=== PATIENT | female | born 2000 | race Caucasian/White ===

== ENCOUNTER 2019-05-02 11:07 | Observation (INO) | payer BC ==
[~2019-05-02] VITALS: Ht 162.6 cm; Wt 57.6 kg
[2019-05-02] MEDS ORDERED: DIPHTH/TETANUS/ACEL. PERTUSSIS IM ONE (11:20)
[2019-05-02] MEDS ORDERED: EMS NS 0.9%(*) 1000 ML BAG 1,000 ML IV ONE (11:20)
--- NOTE | 2019-05-02 11:48 | ER Report ---
History and Physical Time Seen By MD: 11:25 HPI/ROS CHIEF COMPLAINT: Fainting episode HISTORY OF PRESENT ILLNESS: This is a 18-year-old female who presents to the emergency department via EMS for a syncopal episode. Patient just arrived from [place] last night, here visiting her brother, she got out of the car to me his girlfriend when she suddenly had a syncopal episode, hitting the left side of her face and head on the ground. He does sound as though she had a positive loss of consciousness. She has had vertigo before. Patient states that she did feel wobbly like her previous vertigo episodes. She is otherwise healthy. She denies nausea at this time. No vomiting. No chest pain or shortness of breath. She is very anxious and tearful. GCS 15. No seizure activity. Her face is covered with dried blood. REVIEW OF SYSTEMS: Constitutional: No fever, no chills. Eyes: No discharge. ENT: No sore throat. Cardiovascular: No chest pain, no palpitations. Respiratory: No cough, no shortness of breath. Gastrointestinal: No abdominal pain, no vomiting. Genitourinary: No hematuria. Musculoskeletal: No back pain. Skin: As above. Neurological: As above. Allergies: Coded Allergies: No Known Drug Allergies (Unverified , 05/02/19) Home Meds Reported Medications [ Control] No Conflict Check 05/02/19 Past Medical/Surgical History The patient has a past medical and surgical history of colitis, depression, uses marijuana on a daily basis. Vertigo. Reviewed Nurses Notes: Yes Constitutional Vital Sign - Last 24 Hours 05/02/19 05/02/19 05/02/19 05/02/19 11:11 11:30 12:00 12:02 Temp 98.2 Pulse 88 85 82 Resp 22 10 43 B/P (MAP) 128/73 118/48 (71) Pulse Ox 99 97 99 05/02/19 05/02/19 05/02/19 05/02/19 12:30 12:35 13:05 13:35 Pulse 92 86 96 Resp 39 31 17 25 B/P (MAP) 134/93 (107) Pulse Ox 77 05/02/19 05/02/19 05/02/19 05/02/19 13:44 13:49 14:00 14:19 Pulse 97 ??? Resp 24 19 B/P (MAP) 136/64 (88) 127/64 (85) Pulse Ox 96 87 05/02/19 05/02/19 05/02/19 05/02/19 14:30 14:49 15:00 15: Pulse 91 84 Resp 25 24 B/P (MAP) 130/71 (90) 104/61 (75) 05/02/19 15:24 Pulse 93 Resp 41 Physical Exam General Appearance: The patient is alert, has no immediate need for airway protection and no signs of toxicity, very anxious, crying. Eyes: Pupils equal and round no pallor or injection. EOMs intact. No nystagmus. ENT, Mouth: Mucous membranes are moist. Respiratory: There are no retractions, lungs are clear to auscultation. Cardiovascular: Regular rate and rhythm. No murmurs, clicks or rubs. Gastrointestinal: Abdomen is soft and non tender, no masses, bowel sounds normal. Neurological: Alert and oriented 4. Moving all extremities. Following all commands. No focal neuro deficits. Skin: Laceration approximately 2 cm in totality, to the left forehead, abrasion to the left cheek, abrasion to the left clavicle. Bleeding is controlled. Musculoskeletal: Neck is supple non tender. Extremities are nontender, nonswollen and have full range of motion. DIFFERENTIAL DIAGNOSIS: After history and physical exam differential diagnosis was considered for syncope including but not limited to vasovagal syncope, arrhythmia, dehydration, and blood loss. Medical Decision Making Data Points Result Diagram: 05/02/19 1124 05/02/19 1124 Laboratory Hematology Test 05/02/19 11:24 White Blood Count 8.8 k/uL (4.5-11.0) Red Blood Count 4.33 M/uL (4.17-5.56) Hemoglobin 12.7 g/dL (12.0-16.0) Hematocrit 38.0 % (34.0-47.0) Mean Corpuscular Volume 87.8 fL (80.0-96.0) Mean Corpuscular Hemoglobin 29.3 pg (26.0-33.0) Mean Corpuscular Hemoglobin Concent 33.3 g/dL (32.0-36.0) Red Cell Distribution Width 13.9 % (11.5-14.5) Platelet Count 278 K/uL (150-450) Mean Platelet Volume 9.3 fL (7.2-11.1) Neutrophils (%) (Auto) 67.9 % (39.4-72.5) Lymphocytes (%) (Auto) 24.1 % (17.6-49.6) Monocytes (%) (Auto) 7.1 % (4.1-12.4) Eosinophils (%) (Auto) 0.2 % (0.4-6.7) L Basophils (%) (Auto) 0.7 % (0.3-1.4) Nucleated RBC Relative Count (auto) 0.0 /100WBC Neutrophils # (Auto) 6.0 K/uL (2.0-7.4) Lymphocytes # (Auto) 2.1 K/uL (1.3-3.6) Monocytes # (Auto) 0.6 K/uL (0.3-1.0) Eosinophils # (Auto) 0.0 K/uL (0.0-0.5) Basophils # (Auto) 0.1 K/uL (0.0-0.1) Nucleated RBC Absolute Count (auto) 0.00 K/uL Chemistry Test 05/02/19 11:24 05/02/19 15:27 Sodium Level 138 mmol/L (137-145) Potassium Level 3.4 mmol/L (3.5-5.0) Chloride Level 106 mmol/L (98-107) Carbon Dioxide Level 20 mmol/L (22-31) Blood Urea Nitrogen 8 mg/dl (7-18) Creatinine 0.60 mg/dl (0.52-1.04) Glomerular Filtration Rate Calc > 60.0 Random Glucose 130 mg/dl (75-110) Calcium Level 9.0 mg/dl (8.4-10.2) Total Bilirubin 0.6 mg/dl (0.2-1.3) Aspartate Amino Transf (AST/SGOT) 19 U/L (0-35) Alanine Aminotransferase (ALT/SGPT) 27 U/L (0-56) Alkaline Phosphatase 53 U/L (0-126) Total Protein 6.6 g/dl (6.3-8.2) Albumin 4.2 g/dl (3.5-5.0) Lactate 1.1 mmol/L (0.7-2.1) Coagulation Test 05/02/19 11:24 Prothrombin Time 14.1 seconds (12.0-14.4) Prothromb Time International Ratio 1.09 Activated Partial Thromboplast Time 25 seconds (23-35) EKG/Imaging EKG Interpretation 12 lead EKG: Time of EKG 1120. Rhythm: Sinus rhythm, ventricular rate 67 bpm. Lowman: normal QRS: normal ST segments: No ST depression or elevation identified. 12 lead EKG: Repeat EKG at 1217 as the patient was complaining of lightheadedness and dizziness. she was hyperventilating at the time. Rhythm: Sinus rhythm, ventricular rate 76 bpm. Lowman: normal QRS: normal ST segments: No ST depression or elevation identified. No changes from the previous EKG. Imaging PATIENT NAME: Lilly Galan : 2000 MR: [id number] V: [id number] EXAM DATE: [id number] ORDERING PHYSICIAN: NORMA BRUSH TECHNOLOGIST: Location: [facility] - [place] Patient: Lilly Galan : 2000 Visit/Account:[id number] Date of Sevice: 05/02/2019 EXAMINATION: Left clavicle, 2 views 05/02/2019 12:46 PM HISTORY: Fall from standing. Syncope. Left clavicle pain. COMPARISON: None FINDINGS: Visualized bony structures are intact and anatomically aligned without fracture or other acute osseous abnormality evident. IMPRESSION: Negative exam. Report Dictated By: Anastacio Salazar MD at 05/02/2019 1:17 PM Report E-Signed By: Anastacio Salazar MD at 05/02/2019 1:19 PM WSN:[id number] PATIENT NAME: Lilly Galan : 2000 MR: [id number] V: [id number] EXAM DATE: [id number] ORDERING PHYSICIAN: NORMA BRUSH TECHNOLOGIST: Location: [facility] - [place] Patient: Lilly Galan : 2000 Visit/Account:[id number] Date of Sevice: 05/02/2019 EXAMINATION: CT HEAD, MAXILLOFACIAL, AND CERVICAL SPINE WITHOUT CONTRAST COMPARISON: None available HISTORY: Syncope. Fall from standing. Head pain and left jaw pain. PROCEDURE: Noncontrast multiplanar head CT, maxillofacial CT, and cervical spine CT. One of the following dose optimization techniques was utilized in the performan ce of this exam: Automated exposure control; adjustment of the mA and/or kV according to the patient's size; or use of an iterative reconstruction technique. Specific details can be referenced in the facility's radiology CT exam operational policy. FINDINGS: CT head without contrast: Brain volume: Age-appropriate. Hemorrhage/extra-axial fluid: None. Mass effect/midline shift/edema: None. Ischemia: Montalvo-white differentiation is preserved. Ventricles and basal cisterns: Within normal limits. Posterior fossa: Negative. Vessels: Negative. Calvarium, skull base, and scalp: Left frontal scalp laceration. No radiopaque foreign body. No fracture. CT maxillofacial without contrast: Mandible, temporomandibular joints, and teeth: Negative. Orbits and orbital contents: No orbit fracture. Globes and orbital contents are symmetric. Paranasal sinuses and mastoid air cells: Negative. Nasal bones, anterior nasal spine, and nasal septum: Negative. Zygomatic arches and pterygoid plates: Negative. Facial soft tissues: Left facial mild soft tissue swelling. No radiopaque foreign body or hematoma. CT cervical spine without contrast: Alignment: Within normal limits. Cranio-cervical junction: Within normal limits. Vertebral bodies: Negative. Posterior elements: Negative. Disc spaces: Negative. Hardware: None. Soft tissues: Incompletely visualized soft tissue swelling in the region of the left mid/distal clavicle. Visualized upper chest: Negative. IMPRESSION: 1. Left frontal scalp laceration and left facial contusion. 2. No evidence of acute intracranial pathology. 3. No maxillofacial fracture. 4. No cervical spine fracture or malalignment. 5. Incompletely visualized soft tissue contusion along the mid/distal left clavicle. Consider further characterization by radiographs if there is any clinical concern for clavicle/shoulder trauma. Report Dictated By: Gasper Neal MD at 05/02/2019 12:08 PM Report E-Signed By: Gasper Neal MD at 05/02/2019 12:32 PM WSN:[id number] ED Course/Re-evaluation Clinical Indication for ER IV: Hydration, IV Access ED Course The patient was admitted to room. A history and physical obtained. Differential diagnoses were considered. A CT of the head, face and C-spine were negative for any acute pathology. I did review the results with the patient. They did note that there was incomplete exam of the left clavicle they did note there may be some underlying soft tissue damage and concerned about a clavicle fracture recommended an x-ray, I did review this with the patient and her family, an x- ray was obtained which was negative. Patient has had persistent vomiting, she has received 0.5 mg IV Ativan 2, 12.5 mg IV Phenergan 2. The patient's wounds on the left forehead, cheek and left clavicle were cleaned, the laceration to the left forehead was repaired as noted below. As the patient had continuous, very forceful vomiting in spite of pharmacologic interventions, I did recommend an admission to the hospital for observation as well as treatment of her nausea and vomiting. Patient expressed understanding, was agreeable with this plan of care. I did speak with Dr. Jett the general surgeon on-call as noted below, he is accepting the patient in the surgical services, the patient was admitted to the medical floor. 05/02/2019 12:43:39 pm negative C-spine by CT scan, c-collar was removed, patient had no pain with flexion, extension and rotation from right to left. There was a potential concern for a left clavicle injury, not completely evaluated on the CT scan, patient is painful over this area after removing the c-collar, is visualized I am getting a left clavicle x-ray. patient has been very anxious and hyperventilating, I did ask her if she would like some medication to help her relax, she said she would like something. I did give her 0.5 mg IV Ativan as well as 12.5 mg IV Phenergan for her nausea. 05/02/2019 1:43:39 pm Procedure: Laceration repair. Verbal consent was obtained from the patient. The 2 cm star pattern laceration on the left forehead was anesthetized in the usual fashion. The wound was scrubbed, draped and explored to its base with a gloved finger. There were structures involved. No tendon injury was identified. The wound was repaired with one 5-0 Vicryl pursestring suture. One 6-0 Prolene pursestring suture. 4 6- 0 Prolene simple interrupted sutures. The wound repair was complex. The procedure was performed by myself. 05/02/2019 2:01:51 pm did speak [address] Dr[address] Jett, the general surgeon on-call regarding the patient's case, he is accepting the patient and his services, patient will be admitted to the medical floor for syncope, head injury, persistent vomiting. Decision to Disposition Date: May 02, 2019 Decision to Disposition Time: 14:01 Depart Departure Latest Vital Signs Vital Signs Date Time Temp Pulse Resp B/P (MAP) Pulse Ox O2 Delivery O2 Flow Rate FiO2 05/02/19 15:24 93 41 05/02/19 15:00 104/61 (75) 05/02/19 14:19 87 05/02/19 11:11 98.2 Impression: Primary Impression: Syncope Additional Impressions: Head injury Persistent vomiting Condition: Improved Disposition: Admitted from ER Problem Qualifiers Primary Impression: Syncope Syncope type: unspecified Qualified Codes: R55 - Syncope and collapse Additional Impressions: Head injury Encounter type: initial encounter Qualified Codes: S09.90XA - Unspecified injury of head, initial encounter NORMA BRUSH-ETHAN May 02, 2019 11:48
[2019-05-02 11:59] LABS: PLATELET COUNT, AUTOMATED 278 K/uL (150-450)
[2019-05-02] MEDS ORDERED: BIRTH CONTROL (12:00)
[2019-05-02 12:09] LABS: INR 1.09
[2019-05-02] MEDS ORDERED: PROMETHAZINE 25 MG/ML 1 ML AMP IVP ONE ×2 (12:35→13:20)
[2019-05-02] MEDS ORDERED: LORazepam 2 MG/ML VIAL IVP ONE ×2 (12:35→13:45)
--- NOTE | 2019-05-02 12:40 | RADIOLOGY IMAGING REPORT ---
FACILITY: [facility] PATIENT NAME: Lilly Galan : 2000 MR: [id number] V: [id number] EXAM DATE: ORDERING PHYSICIAN: NORMA BRUSH TECHNOLOGIST: [place] [facility] [place] Patient: Lilly Galan : 2000 Visit/Account:[id number] Date of Sevice: 05/02/2019 EXAMINATION: CT HEAD, MAXILLOFACIAL, AND CERVICAL SPINE WITHOUT CONTRAST COMPARISON: None available HISTORY: Syncope. Fall from standing. Head pain and left jaw pain. PROCEDURE: Noncontrast multiplanar head CT, maxillofacial CT, and cervical spine CT. One of the following dose optimization techniques was utilized in the performance of this exam: Autom ated exposure control; adjustment of the mA and/or kV according to the patient's size; or use of an i terative reconstruction technique. Specific details can be referenced in the facility's radiology C T exam operational policy. FINDINGS: CT head without contrast: Brain volume: Age-appropriate. Hemorrhage/extra-axial fluid: None. Mass effect/midline shift/edema: None. Ischemia: Montalvo-white differentiation is preserved. Ventricles and basal cisterns: Within normal limits. Posterior fossa: Negative. Vessels: Negative. Calvarium, skull base, and scalp: Left frontal scalp laceration. No radiopaque foreign body. No fract ure. CT maxillofacial without contrast: Mandible, temporomandibular joints, and teeth: Negative. Orbits and orbital contents: No orbit fracture. Globes and orbital contents are symmetric. Paranasal sinuses and mastoid air cells: Negative. Nasal bones, anterior nasal spine, and nasal septum: Negative. Zygomatic arches and pterygoid plates: Negative. Facial soft tissues: Left facial mild soft tissue swelling. No radiopaque foreign body or hematoma. CT cervical spine without contrast: Alignment: Within normal limits. Cranio-cervical junction: Within normal limits. Vertebral bodies: Negative. Posterior elements: Negative. Disc spaces: Negative. Hardware: None. Soft tissues: Incompletely visualized soft tissue swelling in the region of the left mid/distal clavi yoli. Visualized upper chest: Negative. IMPRESSION: 1. Left frontal scalp laceration and left facial contusion. 2. No evidence of acute intracranial pathology. 3. No maxillofacial fracture. 4. No cervical spine fracture or malalignment. 5. Incompletely visualized soft tissue contusion along the mid/distal left clavicle. Consider further characterization by radiographs if there is any clinical concern for clavicle/shoulder trauma. Report Dictated By: Gasper Neal MD at 05/02/2019 12:08 PM Report E-Signed By: Gasper Neal MD at 05/02/2019 12:32 PM WSN:[id number]
--- NOTE | 2019-05-02 12:40 | RADIOLOGY IMAGING REPORT ---
FACILITY: [facility] [place] PATIENT NAME: Lilly Galan : 2000 MR: [id number] V: [id number] EXAM DATE: ORDERING PHYSICIAN: NORMA BRUSH TECHNOLOGIST: Location: [facility] Patient: Lilly Galan : 2000 Visit/Account:[id number] Date of Sevice: 05/02/2019 EXAMINATION: CT HEAD, MAXILLOFACIAL, AND CERVICAL SPINE WITHOUT CONTRAST COMPARISON: None available HISTORY: Syncope. Fall from standing. Head pain and left jaw pain. PROCEDURE: Noncontrast multiplanar head CT, maxillofacial CT, and cervical spine CT. One of the following dose optimization techniques was utilized in the performance of this exam: Autom ated exposure control; adjustment of the mA and/or kV according to the patient's size; or use of an i terative reconstruction technique. Specific details can be referenced in the facility's radiology C T exam operational policy. FINDINGS: CT head without contrast: Brain volume: Age-appropriate. Hemorrhage/extra-axial fluid: None. Mass effect/midline shift/edema: None. Ischemia: Montalvo-white differentiation is preserved. Ventricles and basal cisterns: Within normal limits. Posterior fossa: Negative. Vessels: Negative. Calvarium, skull base, and scalp: Left frontal scalp laceration. No radiopaque foreign body. No fract ure. CT maxillofacial without contrast: Mandible, temporomandibular joints, and teeth: Negative. Orbits and orbital contents: No orbit fracture. Globes and orbital contents are symmetric. Paranasal sinuses and mastoid air cells: Negative. Nasal bones, anterior nasal spine, and nasal septum: Negative. Zygomatic arches and pterygoid plates: Negative. Facial soft tissues: Left facial mild soft tissue swelling. No radiopaque foreign body or hematoma. CT cervical spine without contrast: Alignment: Within normal limits. Cranio-cervical junction: Within normal limits. Vertebral bodies: Negative. Posterior elements: Negative. Disc spaces: Negative. Hardware: None. Soft tissues: Incompletely visualized soft tissue swelling in the region of the left mid/distal clavi yoli. Visualized upper chest: Negative. IMPRESSION: 1. Left frontal scalp laceration and left facial contusion. 2. No evidence of acute intracranial pathology. 3. No maxillofacial fracture. 4. No cervical spine fracture or malalignment. 5. Incompletely visualized soft tissue contusion along the mid/distal left clavicle. Consider further characterization by radiographs if there is any clinical concern for clavicle/shoulder trauma. Report Dictated By: Gasper Neal MD at 05/02/2019 12:08 PM Report E-Signed By: Gasper Neal MD at 05/02/2019 12:32 PM WSN:[id number]
--- NOTE | 2019-05-02 12:41 | RADIOLOGY IMAGING REPORT ---
[place] [facility] [place] PATIENT NAME: Lilly Galan : 2000 MR: [id number] V: [id number] EXAM DATE: ORDERING PHYSICIAN: NORMA BRUSH TECHNOLOGIST: [place] [facility] [place] Gal[place] : 2000 Visit/Account:[id number] Date of Sevice: 05/02/2019 EXAMINATION: CT HEAD, MAXILLOFACIAL, AND CERVICAL SPINE WITHOUT CONTRAST COMPARISON: None available HISTORY: Syncope. Fall from standing. Head pain and left jaw pain. PROCEDURE: Noncontrast multiplanar head CT, maxillofacial CT, and cervical spine CT. One of the following dose optimization techniques was utilized in the performance of this exam: Autom ated exposure control; adjustment of the mA and/or kV according to the patient's size; or use of an i terative reconstruction technique. Specific details can be referenced in the facility's radiology C T exam operational policy. FINDINGS: CT head without contrast: Brain volume: Age-appropriate. Hemorrhage/extra-axial fluid: None. Mass effect/midline shift/edema: None. Ischemia: Montalvo-white differentiation is preserved. Ventricles and basal cisterns: Within normal limits. Posterior fossa: Negative. Vessels: Negative. Calvarium, skull base, and scalp: Left frontal scalp laceration. No radiopaque foreign body. No fract ure. CT maxillofacial without contrast: Mandible, temporomandibular joints, and teeth: Negative. Orbits and orbital contents: No orbit fracture. Globes and orbital contents are symmetric. Paranasal sinuses and mastoid air cells: Negative. Nasal bones, anterior nasal spine, and nasal septum: Negative. Zygomatic arches and pterygoid plates: Negative. Facial soft tissues: Left facial mild soft tissue swelling. No radiopaque foreign body or hematoma. CT cervical spine without contrast: Alignment: Within normal limits. Cranio-cervical junction: Within normal limits. Vertebral bodies: Negative. Posterior elements: Negative. Disc spaces: Negative. Hardware: None. Soft tissues: Incompletely visualized soft tissue swelling in the region of the left mid/distal clavi yoli. Visualized upper chest: Negative. IMPRESSION: 1. Left frontal scalp laceration and left facial contusion. 2. No evidence of acute intracranial pathology. 3. No maxillofacial fracture. 4. No cervical spine fracture or malalignment. 5. Incompletely visualized soft tissue contusion along the mid/distal left clavicle. Consider further characterization by radiographs if there is any clinical concern for clavicle/shoulder trauma. Report Dictated By: Gasper Neal MD at 05/02/2019 12:08 PM Report E-Signed By: Gasper Neal MD at 05/02/2019 12:32 PM WSN:[id number]
--- NOTE | 2019-05-02 12:47 | EKG ---
FACILITY: [facility] - [place] PATIENT NAME: BRI GORE : [id number] MR: [id number] V: [id number] EXAM DATE: ORDERING PHYSICIAN: NORMA BRUSH TECHNOLOGIST: MARTHA Test Reason : SYNCOPE Blood Pressure : / mmHG Vent. Rate : 067 BPM Atrial Rate : 067 BPM P-R Int : 128 ms QRS Dur : 082 ms QT Int : 404 ms P-R-T Axes : 055 080 045 degrees QTc Int : 426 ms Normal sinus rhythm Normal ECG No previous ECGs available Confirmed by AMOR MENDOSA ([id number]) on 05/02/2019 9:48:42 PM Referred By: NORMA Confirmed By:AMOR MENDOSA
--- NOTE | 2019-05-02 12:48 | EKG ---
FACILITY: [facility] PATIENT NAME: BRI GORE : [id number] MR: [id number] V: [id number] EXAM DATE: ORDERING PHYSICIAN: NORMA BRUSH TECHNOLOGIST: MARTHA Test Reason : SYNCOPE Blood Pressure : / mmHG Vent. Rate : 076 BPM Atrial Rate : 076 BPM P-R Int : 132 ms QRS Dur : 082 ms QT Int : 378 ms P-R-T Axes : 061 081 047 degrees QTc Int : 425 ms Sinus rhythm with marked sinus arrhythmia Otherwise normal ECG When compared with ECG of 02-MAY-2019 11:20, No significant change was found Confirmed by AMOR MENDOSA ([id number]) on 05/02/2019 9:48:04 PM Referred By: NORMA Confirmed By:AMOR MENDOSA
[2019-05-02] MEDS ORDERED: TETRACAIN/EPI/LIDO GEL 3ML SYR TP ONE (13:15)
--- NOTE | 2019-05-02 13:26 | RADIOLOGY IMAGING REPORT ---
FACILITY: [facility] [place] PATIENT NAME: Lilly Galan : 2000 MR: [id number] V: [id number] EXAM DATE: ORDERING PHYSICIAN: NORMA BRUSH TECHNOLOGIST: Location: [facility] - [place], [place] Patient: Lilly Galan : 2000 Visit/Account:[id number] Date of Sevice: 05/02/2019 EXAMINATION: Left clavicle, 2 views 05/02/2019 12:46 PM HISTORY: Fall from standing. Syncope. Left clavicle pain. COMPARISON: None FINDINGS: Visualized bony structures are intact and anatomically aligned without fracture or other a cute osseous abnormality evident. IMPRESSION: Negative exam. Report Dictated By: Anastacio Salazar MD at 05/02/2019 1:17 PM Report E-Signed By: Anastacio Salazar MD at 05/02/2019 1:19 PM WSN:[id number]
[2019-05-02] MEDS ORDERED: PROMETHAZINE 25 MG/ML 1 ML AMP IVP PRN (14:10)
[2019-05-02] MEDS ORDERED: ONDANSETRON 4 MG/2 ML VIAL IVP PRN (14:10)
[2019-05-02] MEDS ORDERED: MORPHINE 2 MG/ML SYR IVP PRN (14:10)
[2019-05-02 16:22] VITALS: BP 122/65
--- NOTE | 2019-05-02 17:07 | Gen Surgery History & Physical ---
History of Present Illness Chief Complaint fall History of Present Illness 18 yo f from [place] stepped out of car to meet a friend. she shook his hand, stepped back, got dizzy, then passed out and fell to the ground. she has never gotten dizzy like that in the past. +vomit but not since arriving to the floor. she is hungry. History Home Meds Reported Medications [ Control] No Conflict Check 05/02/19 Allergies: Coded Allergies: No Known Drug Allergies (Unverified , 05/02/19) Patient History: FH: asthma BROTHER OR SISTER Vertigo FATHER Review of Systems Constitutional: Other (per hpi) Exam General Appearance: Alert, Awake, No Acute Distress Neuro: No Gross deficits Eyes: Other (per, eomi) ENT: Moist Mucous Membranes Neck: Other (no cspine ttp) Cardiovascular: Other (reg rate) Respiratory: No Respiratory Distress GI: Abd Soft and Non-Tender Extremities: Other (no pitting edema) Integumentary: Other (abrasions on left face) Psych: Alert & Oriented X3, Appropriate Mood & Affect Medical Decision Making Data Points Result Diagram: 05/02/19 1124 05/02/19 1124 Assessment and Plan Problems: (1) Syncope Status: Acute Assessment & Plan: 05/02/19: syncope and fall. facial abrasions. likely concussion. vomiting improved. ivf, adat, pain and n/v control, likely home tomorrow. Venous Thromboembolism Antithrombotics Is Pt On Any Antithrombotics?: No Problem Qualifiers (1) Syncope: Syncope type: unspecified Qualified Codes: R55 - Syncope and collapse LUCILA YU May 02, 2019 17:07
[2019-05-02] MEDS: NS(*) 0.9% 1000 ML BAG 1,000 ML IV PRN (18:32)
[2019-05-02 19:26] VITALS: BP 122/69
[2019-05-02 23:05] VITALS: BP 122/69
[2019-05-03] MEDS: NS(*) 0.9% 1000 ML BAG 1,000 ML IV PRN ×2 (04:14→05:10)
[2019-05-03 07:10] VITALS: BP 110/71
--- NOTE | 2019-05-03 07:33 | General Surgery Progress Note ---
Subjective Progress Notes Subjective did well overnight. no vomiting. feels dizzy when she gets up. Physical Exam Vital Signs Date Time Temp Pulse Resp B/P (MAP) Pulse Ox O2 Delivery O2 Flow Rate FiO2 05/03/19 07:10 98.5 75 16 110/71 (84) 95 Room Air Intake and Output 05/03/19 07:03 Intake Total 2775 ml Balance 2775 ml Intake Oral 800 ml IV Total 1975 ml # Voids 3 General Appearance: No Acute Distress Cardiovascular: Other (reg rate) GI: Other (abd soft) Result Diagram: 05/02/19 1124 05/03/19 0540 Assessment and Plan Problems: (1) Syncope Status: Acute Assessment & Plan: 05/02/19: syncope and fall. facial abrasions. likely concussion. vomiting improved. ivf, adat, pain and n/v control, likely home tomorrow. 05/03/19: did fine overnight. hospitalist consult for dizziness today. home soon. Exam Sepsis Risk: No Definite Risk Problem Qualifiers (1) Syncope: Syncope type: unspecified Qualified Codes: R55 - Syncope and collapse LUCILA YU May 03, 2019 07:33
--- NOTE | 2019-05-03 12:08 | Hospitalist Consultation ---
History of Present Illness Requesting Physician Dr. Jett Reason for Consult Dizziness Chief Complaint concussion, dizzy History of Present Illness She is a 18-year-old female who presented to the emergency department via EMS yesterday after having syncopal episode. She is here visiting her brother from [place]. She reports yesterday, she got up from a seated position in a car to meet her brother's girlfriend and felt dizzy. She states she tried to walk back to sit in the car, but lost consciousness, falling face forward. She has apparent abrasions to her face. She was reported to have concussion and vomiting and was admitted for observation to the medical floor. She reports the dizziness, nausea and vomiting has now improved. She has been ambulating the hallways without difficulty. She denies chest pain or SOB. History Home Meds Reported Medications [ Control] No Conflict Check 05/02/19 Allergies: Coded Allergies: No Known Drug Allergies (Unverified , 05/02/19) Patient History: FH: asthma BROTHER OR SISTER Vertigo FATHER Smoking Status: Never Smoker Caffeine Intake: Tea Caffeine/Cups Per Day: occassionally Hx Alcohol Use: No Hx Substance Use Disorder: Yes (once/day) Social Drugs: Marijuana Review of Systems All Systems Reviewed/Normal: Yes, Except as Noted Exam Vital Signs Vital Signs Date Time Temp Pulse Resp B/P (MAP) Pulse Ox O2 Delivery O2 Flow Rate FiO2 05/03/19 07:25 95 Room Air 05/03/19 07:10 98.5 75 16 110/71 (84) General Appearance: Alert, Awake, No Acute Distress, Afebrile Neuro: No Gross deficits Cardiovascular: Regular Rate and Rhythm, Other (No murmurs heard) Respiratory: No Respiratory Distress, Clear to Auscultation GI: Abd Soft and Non-Tender Extremities: Warm, Perfused; No Edema Integumentary: Other (abrasions noted to face) Psych: Alert & Oriented X3, Appropriate Mood & Affect Medical Decision Making Data Points Result Diagram: 05/02/19 1124 05/03/19 0540 EKG / Imaging EKG Interpretation Sinus rhythm noted with sinus arrhythmia. Monitor Interpretation: Normal Sinus Rhythm Assessment and Plan Problems: (1) Syncope Status: Acute Assessment & Plan: She reported dizziness prior to fall and continued throughout the evening. She reports improvement in symptoms. She had two EKG's throughout admission which show normal sinus rhythm with sinus arrhythmia. She has no murmurs. She was recommended to follow up with PCP within 2 weeks for further evaluation. Syncope could also be secondary to altitude sickness, which I encourage patient to increase hydration while visiting in [place]. Venous Thromboembolism Antithrombotics Is Pt On Any Antithrombotics?: No Exam Sepsis Risk: No Definite Risk Problem Qualifiers (1) Syncope: Syncope type: unspecified Qualified Codes: R55 - Syncope and collapse [facility] May 03, 2019 12:08
[2019-05-03] MEDS ORDERED: NORE-23 PO (12:30)
--- NOTE | 2019-05-03 12:40 | Hospitalist Depart ---
Discharge Summary Reason for Hosp/Final Diag: (1) Syncope Status: Acute Hospital Course & Plan: 05/02/19: syncope and fall. facial abrasions. likely concussion. vomiting improved. ivf, adat, pain and n/v control, likely home tomorrow. 05/03/19: did fine overnight. hospitalist consult for dizziness today. home soon. 05/03/19: no further s/s. Up in ro. Cleared by hospitalist for DC. FU PCP. Departure Weight (Pounds): 127 Result Diagram: 05/02/19 1124 05/03/19 0540 Condition: Improved Discharge: Home, Self Care Time Spent: > 30 min Discharge Instructions Home Meds Reported Medications Noreth A-Et Estra/Fe Fumarate (JUNEL FE 1 MG-20 MCG TABLET) 1 Each Tablet, 1 TAB PO QDAY skips placebos 05/03/19 Discontinued Reported Medications [ Control] No Conflict Check 05/02/19 Diet: Regular Activity: No Exertion Venous Thromboembolism Antithrombotics Is Pt On Any Antithrombotics?: No Problem Qualifiers (1) Syncope: Syncope type: unspecified Qualified Codes: R55 - Syncope and collapse LAINE MANZANO MD May 03, 2019 12:40
[2019-05-04] MEDS ORDERED: MECL25TA27 PO (04:07)
[2019-05-04] MEDS ORDERED: ONDA4TAB9 PO (04:07)
[2019-05-04] MEDS ORDERED: LORA-1456 PO (04:07)
== END 2019-05-03 12:35 | disposition home or self-care (01) ==
LOC: ER 11:50 → INTOOBSV 15:31 → MED 15:31
PROVIDERS: ADMIT Surgery; ATTEND Surgery
DX: R55 Syncope and collapse (principal); S09.90XA Unspecified injury of head, initial encounter; R11.10 Vomiting, unspecified
CPT/HCPCS: 12051; 36415; 70450; 70486; 72125; 73000; 83605; 85025; 85610; 85730; 90471; 90715; 93005; 96361; 96374; 96375; 96376; 99284; G0378; J2060; J2270; J2405; J2550; J7030; 82040; 82247; 82310; 82374; 82435; 82565; 82947; 84075; 84132; 84155; 84295; 84450; 84460; 84520

== ENCOUNTER 2019-05-04 02:37 | Emergency (ER) | payer BC ==
[~2019-05-04 02:37] MED LIST: BIRTH CONTROL; NORE-23 PO
[2019-05-04] MEDS ORDERED: diphenhydrAMINE 50 MG/ML VIAL IVP ONE (02:45)
[2019-05-04] MEDS ORDERED: LORazepam 2 MG/ML VIAL IVP ONE (02:45)
[2019-05-04] MEDS ORDERED: NS(*) 0.9% 1000 ML BAG 1,000 ML IV ONE ×2 (02:45→03:25)
[2019-05-04] MEDS ORDERED: METOCLOPRAMIDE 10 MG/2 ML SDV IVP ONE (02:45)
--- NOTE | 2019-05-04 02:54 | ER Report ---
History and Physical Time Seen By MD: 02:38 Hx. of Stated Complaint: FELT FINE WHEN SHE WENT TO BED, WOKE UP AROUND ONE FEELING LIKE SHE WAS GOING TO BE SICK. VOMITED 3X BEFORE CALLING EMS. FELL 3 DAYS AGO, HIT HEAD HPI/ROS CHIEF COMPLAINT: Nausea, vomiting, dizziness HISTORY OF PRESENT ILLNESS: Patient was seen in the ED 3 days ago and admitted for observation after having a syncopal episode and falling and hitting her face. She had a negative CT scan at that time was diagnosed with concussion. She had a negative hospital stay and was discharged home yesterday. Tonight around 1 AM she had spontaneous onset of nausea, vomiting, and vertigo. Vertigo is worse with movement. She has no tinnitus, hearing loss, new headache, focal weakness, focal numbness. REVIEW OF SYSTEMS: Constitutional: No fever, no chills. Eyes: No discharge. ENT: No difficulty swallowing. Cardiovascular: No chest pain, no palpitations. Respiratory: No cough, no shortness of breath. Gastrointestinal: Negative except history of present illness Musculoskeletal: No back pain. Skin: Abrasions and laceration. Neurological: Negative except history of present illness Remainder of the 14 system rev: Yes Allergies: Coded Allergies: No Known Drug Allergies (Unverified , 05/04/19) Home Meds Reported Medications Noreth A-Et Estra/Fe Fumarate (JUNEL FE 1 MG-20 MCG TABLET) 1 Each Tablet, 1 TAB PO QDAY skips placebos 05/03/19 Discontinued Reported Medications [ Control] No Conflict Check 05/02/19 Reviewed Nurses Notes: Yes Old Medical Records Reviewed: Yes Smoking Status: Never Smoker Hx Substance Use Disorder: Yes (once/day) Hx Alcohol Use: No Constitutional Vital Sign - Last 24 Hours 05/04/19 02:36 Temp 98.2 Pulse 68 Resp 16 B/P (MAP) 112/66 Pulse Ox 95 O2 Delivery Room Air Intake and Output 05/03/19 05/03/19 05/04/19 15:03 23:03 07:03 Intake Total 1000 ml Balance 1000 ml Physical Exam General Appearance: The patient is alert, has no immediate need for airway protection and no signs of toxicity. She does appear miserable Eyes: Pupils equal and round no pallor or injection. Left periorbital ecchymoses and swelling. ENT, Mouth: Mucous membranes are moist. Respiratory: Normal respiratory rate. Cardiovascular: Regular rate and rhythm. Intact distal pulses Gastrointestinal: Non-tender, no distention Neurological: Cranial nerves are intact bilaterally. Negative pronator drift bilaterally, normal finger to nose. Normal strength throughout the bilateral extremities throughout. Skin: Warm and dry, no rashes. Abrasions over the scalp laceration or well- appearing, negative erythema, edema or induration. Musculoskeletal: Neck is supple non tender. DIFFERENTIAL DIAGNOSIS: After history and physical exam differential diagnosis was considered for postconcussive syndrome versus subarachnoid hemorrhage versus vertebral artery dissection versus nausea and vomiting Medical Decision Making ED Course/Re-evaluation ED Course Patient's symptoms are most likely postconcussive in nature. We'll give IV fluids, antiemetics, Ativan, Reglan and Benadryl. If she improves and we'll send her home with prescription medications to help her feel better. Re-evaluation Patient condition and improved after medications. We'll give additional IV fluid and see if she can tolerate meclizine. Decision to Disposition Date: May 04, 2019 Decision to Disposition Time: 03:57 Depart Departure Latest Vital Signs Vital Signs Date Time Temp Pulse Resp B/P (MAP) Pulse Ox O2 Delivery O2 Flow Rate FiO2 05/04/19 02:36 98.2 68 16 112/66 95 Room Air Impression: Primary Impression: Vertigo Additional Impressions: Post concussion syndrome Nausea and vomiting Condition: Stable Disposition: HOME OR SELF-CARE New Scripts Lorazepam (ATIVAN) 1 Mg Tablet 1 MG PO Q8H PRN for vertigo for 7 Days, #10 TAB Prov: ADRIANNE ALAMO DO 05/04/19 Ondansetron 4 Mg Odt (ONDANSETRON 4 MG ODT) 4 Mg Tab.rapdis 4 MG PO Q8H PRN for nausea and vomiting for 3 Days, #10 TAB Prov: ADRIANNE ALAMO DO 05/04/19 Meclizine Hcl (MECLIZINE HCL) 25 Mg Tab.chew 25 MG PO TID PRN for vertigo for 7 Days, #21 TAB.CHEW Prov: ADRIANNE ALAMO DO 05/04/19 Patient Instructions: Concussion (DC), Vertigo (DC) Additional Instructions: You can take Zofran if you are nauseated and having vomiting. You can take meclizine for vertigo and if this is not working then you can take the Ativan prescribed to. These medications can make you drowsy so please do not combine with alcohol or drive while taking them. If your symptoms continue or worsen and please return to the ER for reevaluation. Otherwise follow-up with her primary care doctor when she returned to [place]. Problem Qualifiers Additional Impressions: Nausea and vomiting Vomiting type: unspecified Vomiting Intractability: non-intractable Qualified Codes: R11.2 - Nausea with vomiting, unspecified ADRIANNE ALAMO DO May 04, 2019 02:54
[2019-05-04] MEDS ORDERED: MECLIZINE HCL 25 MG TAB PO ONE (03:25)
[2019-05-04 04:00] VITALS: BP 115/54
[2019-05-04] MEDS ORDERED: MECL25TA27 PO (04:07)
[2019-05-04] MEDS ORDERED: LORA-1456 PO (04:07)
[2019-05-04] MEDS ORDERED: ONDA4TAB9 PO (04:07)
[2019-05-04] MEDS ORDERED: ONDANSETRON 4 MG ODT TH SL ONE (04:35)
== END 2019-05-04 04:20 | disposition home or self-care (01) ==
LOC: ER 02:46
DX: R42 Dizziness and giddiness (principal); F07.81 Postconcussional syndrome; R11.2 Nausea with vomiting, unspecified
CPT/HCPCS: 96361; 96374; 96375; 99284; J1200; J2060; J2765; J7030; J8597; S0119

== ENCOUNTER 2019-05-11 13:00 | Emergency (ER) | payer BC ==
[2019-05-11 13:00] VITALS: BP 122/76
[~2019-05-11 13:00] MED LIST changes: +LORA-1456 PO; +MECL25TA27 PO; +ONDA4TAB9 PO
--- NOTE | 2019-05-11 13:06 | ER Report ---
History and Physical Time Seen By MD: 13:03 HPI/ROS CHIEF COMPLAINT: Laceration, suture removal. HISTORY OF PRESENT ILLNESS: The patient returns to the ED for suture removal. There have been no problems and no symptoms of infection. The laceration was on the face. Sutures have been in place for 6 days. Allergies: Coded Allergies: No Known Drug Allergies (Unverified , 05/11/19) Home Meds Reported Medications Noreth A-Et Estra/Fe Fumarate (JUNEL FE 1 MG-20 MCG TABLET) 1 Each Tablet, 1 TAB PO QDAY skips placebos 05/03/19 Discontinued Scripts Lorazepam (ATIVAN) 1 Mg Tablet, 1 MG PO Q8H PRN for vertigo for 7 Days, #10 TAB Prov:ADRIANNE ALAMO 05/04/19 Ondansetron 4 Mg Odt (ONDANSETRON 4 MG ODT) 4 Mg Tab.rapdis, 4 MG PO Q8H PRN for nausea and vomiting for 3 Days, #10 TAB Prov:JASMEETADRIANNE 05/04/19 Meclizine Hcl (MECLIZINE HCL) 25 Mg Tab.chew, 25 MG PO TID PRN for vertigo for 7 Days, #21 TAB.CHEW Prov:ADRIANNE ALAMO 05/04/19 Past Medical/Surgical History Patient has a past medical history of colitis, depression. Patient has no pertinent surgical history. Reviewed Nurses Notes: Yes Smoking Status: Never Smoker Hx Substance Use Disorder: Yes (once/day) Hx Alcohol Use: No Constitutional Vital Sign - Last 24 Hours 05/11/19 13:00 Temp 98.1 Pulse 62 Resp 15 B/P (MAP) 122/76 Pulse Ox 96 O2 Delivery Room Air Physical Exam General appearance: alert no distress Skin: The laceration of the face is well healing and appears to have no evidence of infection. MEDICAL DECISION MAKING: I removed the sutures. Following removal there was no reported dehiscence of the wound. Medical Decision Making ED Course/Re-evaluation ED Course Patient is admitted and examined, history and physical were obtained. Differential diagnoses were considered. I examination lungs are clear, heart is regular, wound appears to be well approximated. Sutures removed without any difficulties. Patient tolerated procedure well. We'll go ahead and discharge home at this time. Patient verbalized understanding of plan. Decision to Disposition Date: May 11, 2019 Decision to Disposition Time: 13:39 Depart Departure Latest Vital Signs Vital Signs Date Time Temp Pulse Resp B/P (MAP) Pulse Ox O2 Delivery O2 Flow Rate FiO2 05/11/19 13:00 98.1 62 15 122/76 96 Room Air Impression: Primary Impression: Visit for suture removal Condition: Improved Disposition: HOME OR SELF-CARE Patient Instructions: Stitches Removal (DC) Additional Instructions: Monitor for signs of infection; redness, swelling, heat, discharge, increasing pain or red streaking. Take Tylenol or Ibuprofen as needed for pain. Return to the ER with any concerns. EVER FRIAS May 11, 2019 13:06
== END 2019-05-11 13:49 | disposition home or self-care (01) ==
LOC: ER 13:07
DX: S01.81XD Laceration without foreign body of other part of head, subsequent encounter (principal)